=== PATIENT | female | born 1955 | race American Indian/Alaskan Native ===

== ENCOUNTER 2021-02-15 10:18 | Outpatient (CLI) | payer BC ==
--- NOTE | 2021-02-15 15:28 | Mammography Report ---
DIGITAL SCREENING MAMMOGRAM WITH CAD, 02/15/2021 CLINICAL INFORMATION / INDICATION: Routine screening mammography. SCREENING MAMMO Z12.31 TECHNIQUE: Digital bilateral 2D mammography was obtained in the craniocaudal and mediolateral obliqu e projections. This examination was interpreted with the benefit of Computer-Aided Detection analysis . COMPARISON: Prior mammograms 02/13/2020 and 02/06/2019 FINDINGS: Breast Density: There are scattered areas of fibroglandular density. No dominant mass, suspicious calcifications, or architectural distortion in either breast. There is stable benign postlumpectomy change seen in both breasts. There has been no significant snell ge compared with the prior examinations. IMPRESSION: No mammographic evidence of malignancy. Follow up recommendation: Routine yearly BI-RADS Category 2: Benign. A "normal" or negative report should not discourage follow up or biopsy of a clinically significant f inding. A written summary of these findings will be mailed to the patient. The patient will be entered into a mammography reporting system which will generate a reminder letter for the patient's next appointmen t at the appropriate interval. The [employer] recommends yearly mammograms starting at age 40 and continuing as l juno as a woman is in good health. Breast MRI is recommended for women with an approximate 20-25% or greater lifetime risk of breast cancer, including women with a strong family history of breast or ova chandni cancer or who have been treated for Hodgkin's disease. Signer Name: Dena Beltran MD Signed: 02/15/2021 3:23 PM Workstation Name: [employer]
== END 2021-02-15 10:19 | disposition home or self-care (01) ==
LOC: SPVWC 10:18
PROVIDERS: ATTEND Surgery
DX: Z12.31 Encounter for screening mammogram for malignant neoplasm of breast (principal)
CPT/HCPCS: 77067